=== PATIENT | female | born 1990 | race African-American/Black ===

== ENCOUNTER 2025-05-20 11:16 | Emergency (ER) | payer MEDICAID ==
[~2025-05-20] VITALS: Ht 160 cm; Wt 102.3 kg
[2025-05-20 11:18] VITALS: TEMP 97.9
[2025-05-20 11:52] LABS: CALCIUM, TOTAL 8.4 mg/dL (8.8-10.5); CREATININE 0.55 mg/dL (0.60-1.30); GLOMERULAR FILTR. RATE CALC > 60 mL/min (>60); GLUCOSE,RANDOM 99 mg/dL (70-110); SODIUM SERUM 139 mmol/L (136-145); UREA NITROGEN, BLOOD 9 mg/dL (7-18)
[2025-05-20 11:58] LABS: PLATELET COUNT (AUTO) 356 K/uL (150-450); RED BLOOD CELL COUNT(AUTO) 4.73 MIL/uL (4.00-5.20); RED CELL DISTRIBUTION WIDTH 18.7 % (11.5-14.5); WHITE BLOOD COUNT (AUTO) 10.0 K/uL (4.5-11.0)
[2025-05-20 12:01] LABS: ASPARTATE AMINOTRANSFERASE 20 U/L (15-37); HCG,QUANTITATIVE < 1 mIU/mL (0-6); TOTAL PROTEIN, SERUM 8.6 g/dL (6.4-8.2)
[2025-05-20] MEDS: ONDANSETRON HCL 4 MG/2 ML VIAL IVP ONE (12:01)
[2025-05-20] MEDS: SODIUM CHLORIDE 0.9% 1,000 ML IV ONE (12:14)
[2025-05-20 12:32] LABS: RBC MORPHOLOGY COMMENT ABNORMAL RBC MORPH
[2025-05-20 13:05] LABS: APPEARANCE,URINE CLEAR (CLEAR); GLUCOSE, URINE (UA) NEGATIVE (NEGATIVE); LEUKOCYTE ESTERASE ,URINE TRACE (NEGATIVE); NITRATE,URINE NEGATIVE (NEGATIVE); OCCULT BLOOD,URINE TRACE (NEGATIVE); SPECIFIC GRAVITIY, URINE 1.029 (1.003-1.030)
[2025-05-20] MEDS: KETOROLAC TROMETHAMINE 30 MG/ML VIAL IVP ONE (13:09)
[2025-05-20 13:23] LABS: SQUAMOUS EPITHELIAL CELL,UR Many /LPF (None Seen)
[2025-05-20 14:30] VITALS: BP 133/85; PULSE 99; RESP 19; O2SAT 99
[2025-05-20] MEDS: MORPHINE SULFATE 2 MG/ML SYRINGE IVP ONE (14:33)
[2025-05-20] MEDS: FAMOTIDINE 20 MG/2 ML VIAL IVP ONE (14:34)
== END 2025-05-20 18:52 | disposition home or self-care (01) ==
LOC: EMS 11:17
DX: R10.13 Epigastric pain (principal); N89.8 Other specified noninflammatory disorders of vagina; Z88.1 Allergy status to other antibiotic agents; Z88.8 Allergy status to other drugs, medicaments and biological substances; Z98.890 Other specified postprocedural states
CPT/HCPCS: 99285; 74176; 96374; 96375; 76705; 96361; 80048; 80076; 81001; 83690; 84702; 85025; 36415; 93005; J1885; J3490; J1171; J2270; J2405; J7030